=== PATIENT | female | born 1980 | race Caucasian/White ===

== ENCOUNTER → 2016-09-09 | Outpatient (CLI) | payer OTHER, MEDICAID ==
[~2016-09-09] MED LIST: IOPAMIDOL (ISOVUE-300) 50 ML VIAL IV ONE
--- NOTE | 2016-09-09 09:12 | CT ---
CT Brain Without and With Contrast at 0802 hours History: G 44.89. Smell disturbance, severe headaches. Comparison: None. Technique: Axial computed tomographic images of the brain prior to and during the uneventful intrave nous administration of 85 mL Isovue-300 contrast. Dose reduction techniques were utilized. CT Brain Without Contrast Findings: Ventricles, cisterns, and sulci are normal without atrophy, hydr ocephalus, midline shift/herniation, or epidural/subdural hematomas. No intraparenchymal hemorrhage, definite infarct, or mass effect. Bone windows demonstrate no displaced fractures. Paranasal sinuses and mastoid air cells are clear. No sinusitis. CT Brain With Contrast Findings: No evidence of intraaxial enhancing lesions or abnormal leptomeninge al enhancement. No intraluminal filling defects in the [place] vessels. No flow-limiting jena nosis, arterial occlusion, or arteriovenous malformations. Superior sagittal sinus and transverse sin uses are patent. No evidence of superior sagittal sinus thrombosis. Impression: [address] brain without and with contrast enhancement. 2. Consider MRI brain without and with contrast, if there is continued clinical concern. Findings and recommendations discussed with Dr. Nena Hollingsworth talent development consultant for Dr. Susy Schroeder at 0 855 hours today. Final report concurs with initial preliminary interpretation.
== END ==
LOC: FIMAGING 07:37
PROVIDERS: ATTEND Family Medicine
DX: G44.89 Other headache syndrome (principal); H53.9 Unspecified visual disturbance; R00.2 Palpitations
CPT/HCPCS: 70470; Q9967